=== PATIENT | male | born 1990 | race Hispanic/Latino ===

== ENCOUNTER 2017-12-15 19:11 | Emergency (ER) | payer OTHER ==
[2017-12-15 22:49] VITALS: BP 152/72; PULSE 54; RESP 18; TEMP 98.1; O2SAT 100; BMI 24.4
--- NOTE | 2017-12-15 22:57 | ED PDOC ---
HPI: Male Pain Time Seen by Provider: 12/15/17 20:28 Chief Complaint (Nursing): Male Genitourinary Chief Complaint (Provider): Left Testicular Pain History Per: Patient History/Exam Limitations: no limitations Onset/Duration Of Symptoms: Days (x3) Additional Complaint(s): Donny Sellers, a 27 year old male presents to the Emergency Department complaining of dull left testicular pain onset 12/12/17. Reports the pain has been constant and has aches. The pain is worsens when he lays down. Denies any urinary symptoms, fever, chill, nausea, vomiting, or abdominal pain. PMD:Provider TBD Past Medical History Reviewed: Historical Data, Nursing Documentation, Vital Signs Vital Signs: Last Vital Signs Temp 98.1 F 12/15/17 19:42 Pulse 54 L 12/15/17 19:42 Resp 18 12/15/17 19:42 BP 152/72 H 12/15/17 19:42 Pulse Ox 100 12/15/17 19:42 - Medical History PMH: No Chronic Diseases - Surgical History Surgical History: No Surg Hx - Family History Family History: States: Unknown Family Hx - Social History Alcohol: None Drugs: Denies - Allergies Allergies/Adverse Reactions: Allergies Allergy/AdvReac Type Severity Reaction Status Date / Time No Known Allergies Allergy Verified 12/15/17 19:41 Review of Systems ROS Statement: Except As Marked, All Systems Reviewed And Found Negative (As per HPI, otherwise negative) Constitutional: Negative for: Fever, Chills Gastrointestinal: Negative for: Nausea, Vomiting, Abdominal Pain Genitourinary Male: Positive for: Other (denies urinary symptoms) - ECG O2 Sat by Pulse Oximetry: 100 (RA) Pulse Ox Interpretation: Normal Medical Decision Making Medical Decision Making: Time: 20:28 Initial Impression: Left Testicular Pain Initial Plan: --Urine Dipstick --Chlamydia/ GC RNA, TMA --Testicular US --Reevaluation Time:22:52 FINDINGS: Right testicle: Homogeneous in echotexture measuring 4.6 x 2.3 x 3.3 cm. There is preserved arterial and venous flow with no evidence of torsion or orchitis. No hydrocele is noted. The epididymal head measures 1 x 0.6 x 0.7 cm. No definite varicocele is noted. Left testicle: Homogeneous in echotexture measuring 4.8 x 2.1 x 3.1 cm. There is preserved arterial and venous flow with no evidence of torsion or orchitis. Trace hydrocele is noted. The epididymal head measures 0.8 x 0.7 x 1 cm. Left varicocele is noted. Epididymides: See above. Scrotum: See above. IMPRESSION: 1. Left varicocele. 2. No testicular torsion or other acute finding. Thank you for allowing us to participate in the care of your patient. Dictated and Authenticated by: Kaushal Gates MD 12/15/2017 10:14 PM Eastern Time ([place] & [place]) Scribe Attestation: Documented by Carmen Estrada, acting as a scribe for Ban Smith MD Provider Scribe Attestation: All medical record entries made by the Scribe were at my direction and personally dictated by me. I have reviewed the chart and agree that the record accurately reflects my personal performance of the history, physical exam, medical decision making, and the department course for this patient. I have also personally directed, reviewed, and agree with the discharge instructions and disposition. Disposition - Clinical Impression Clinical Impression: Left varicocele - Disposition Referrals: Danny Sierra Jr., MD [Staff Provider] - (FOLLOW UP WITH UROLOGY FOR FURTHER MANAGEMENT) Condition: GOOD Instructions: Varicocele (ED), Testicle Pain (ED)
--- NOTE | 2017-12-16 10:31 | US ---
HISTORY: LEFT sided testicular pain TECHNIQUE: Realtime sonography through the scrotum with color and doppler flow. COMPARISON: None Available. FINDINGS: RIGHT TESTICLE: Measures 4.6 x 2.3 x 3.3 cm. Normal echotexture and flow. RIGHT EPIDIDYMIS: Epididymal head measures 1.0 x 0.6 x 0.7 cm. Grossly unremarkable appearance with normal flow. LEFT TESTICLE: Measures 4.8 x 2.1 x 3.1 cm. Normal echotexture and flow. LEFT EPIDIDYMIS: Epididymal head measures 0.8 x 0.7 x 1.0 cm. Grossly unremarkable appearance with normal flow. HYDROCELE: Trace left hydrocele. VARICOCELE: Small left-sided varicocele with vessels measuring up to 0.4 centimeter. OTHER FINDINGS: None. IMPRESSION: No evidence of testicular torsion. Small left varicocele.
== END 2017-12-15 23:16 | disposition home or self-care (01) ==
LOC: H.ER 19:11
DX: I86.1 Scrotal varices (principal)